=== PATIENT | female | born 1990 | race Caucasian/White ===

== ENCOUNTER → 2021-05-26 | Emergency (ER) | payer SELFPAY ==
[~2021-05-26] VITALS: Ht 157.5 cm; Wt 59.0 kg
[~2021-05-26] MED LIST: NALO4SPR BNOSTRILS
--- NOTE | 2021-05-26 10:26 | NUR ---
TO ER BED 11. [id number] FRON THE [employer], FOUND UNRESPONSIVE. NARCAN 1MG IVP GIVEN [employer].PT AWAKE VERBALLY RESPONSIVE [employer]. BG 126. ADMITS SMOKING "HEROIN." PT IS A&OX3. PT ATTACHED TO MONITOR, VITALS ARE WITHIN NORMAL LIMITS. WARM BLNAKET PROVIDED FOR COMFORT. AWAITING MD SWENSON.
--- NOTE | 2021-05-26 10:50 | NUR ---
Patient does not wish to proceed with medical care recommended by ( ). Patient given information related to possible complications, up to and including , which could occur as a result of leaving the hospital at this time. Patient verbalizes understanding of risks involved due to leaving against medical advice. Patient has signed AMA form. Addendum: 05/26/21 at 1101 by PELON Patient does not wish to proceed with medical care recommended by Dr. Gonzales. Patient given information related to possible complications, up to and including , which could occur as a result of leaving the hospital at this time. Patient verbalizes understanding of risks involved due to leaving against medical advice. Patient has signed AMA form.
[2021-05-26 11:02] VITALS: BP 130/68
--- NOTE | 2021-05-26 11:09 | NUR ---
cannot depart, [facility]
== END | disposition left against medical advice (07) ==
LOC: ER 10:12
DX: T40.1X1A Poisoning by heroin, accidental (unintentional), initial encounter (principal); F17.200 Nicotine dependence, unspecified, uncomplicated; Z79.899 Other long term (current) drug therapy; Y92.89 Other specified places as the place of occurrence of the external cause